=== PATIENT | female | born 1990 | race Two or more races ===

== ENCOUNTER 2017-05-29 13:34 | Emergency (ER) | payer OTHER ==
[~2017-05-29] VITALS: Ht 165.1 cm; Wt 68.0 kg
[2017-05-29 14:24] LABS: Urine Bilirubin Negative (Negative); Urine Blood TRACE /uL (Negative); Urine Color Yellow (Yellow); Urine Glucose Normal (Normal); Urine Ketone Negative (Negative); Urine Nitrite Negative (Negative); Urine RBC 6 /hpf (0 - 4); Urine Squamous Epithelial Cell MANY /hpf (<5); Urine Urobilinogen Normal (Negative); Urine pH 6.5 (5.0-8.0)
[2017-05-29] MEDS ORDERED: KETOROLAC TROMETH 60MG/2ML VIAL IM ONE (15:30)
[2017-05-29 15:38] VITALS: BP 130/89
== END 2017-05-29 15:50 | disposition home or self-care (01) ==
LOC: ER 13:34
DX: N39.0 Urinary tract infection, site not specified (principal); M79.1 Myalgia
CPT/HCPCS: 81001; 81025; 96372; 99284; J1885

== ENCOUNTER 2020-11-23 05:38 | Emergency (ER) | payer MEDICAID, OTHER ==
[~2020-11-23] VITALS: Ht 165.1 cm; Wt 65.8 kg
[2020-11-23 06:35] VITALS: BP 112/78
[2020-11-23] MEDS ORDERED: IBUPROFEN 800 MG TAB PO ONE (07:00)
== END 2020-11-23 07:34 | disposition home or self-care (01) ==
LOC: ER 05:38
DX: G56.01 Carpal tunnel syndrome, right upper limb (principal); X50.0XXA Overexertion from strenuous movement or load, initial encounter; Y93.89 Activity, other specified; Y92.89 Other specified places as the place of occurrence of the external cause; Y99.8 Other external cause status
CPT/HCPCS: 29125

== ENCOUNTER 2022-01-12 09:18 | Emergency (ER) | payer MEDICAID ==
[2022-01-12] MEDS ORDERED: ACETAMINOPHEN 500 MG TAB PO ONE (10:00)
[2022-01-12] MEDS ORDERED: IBUP800T27 PO (11:05)
[2022-01-12] MEDS ORDERED: AMOX500T86 PO (11:05)
[2022-01-12 11:43] VITALS: BP 124/82
== END 2022-01-12 11:37 | disposition home or self-care (01) ==
LOC: ER 09:18
DX: S00.03XA Contusion of scalp, initial encounter (principal); Z79.1 Long term (current) use of non-steroidal anti-inflammatories (NSAID); Z79.2 Long term (current) use of antibiotics; Y04.1XXA Assault by human bite, initial encounter; Y93.89 Activity, other specified; Y92.89 Other specified places as the place of occurrence of the external cause; Y99.8 Other external cause status
CPT/HCPCS: 70450; 70486